=== PATIENT | female | born 1995 | race American Indian/Alaskan Native ===

== ENCOUNTER 2016-05-06 10:58 | Emergency (ER) | payer SELFPAY | END 2016-05-06 11:00 | disposition left against medical advice (07) | LOC: ED 10:58 | DX: T78.40XA Allergy, unspecified, initial encounter (principal); Z53.21 Procedure and treatment not carried out due to patient leaving prior to being seen by health care provider; X58.XXXA Exposure to other specified factors, initial encounter; Y93.89 Activity, other specified; Y99.8 Other external cause status; Y92.89 Other specified places as the place of occurrence of the external cause ==

== ENCOUNTER 2017-09-17 10:54 | Emergency (ER) | payer SELFPAY ==
[2017-09-17] MEDS ORDERED: MOTRIN PO ONE (12:59)
[2017-09-17] MEDS ORDERED: BOOSTRIX IM ONE (12:59)
[2017-09-17 13:38] LABS: Bilirubin,Urine NEG (Negative); Blood,Urine NEG (Negative); Color,Urine Yellow (Yellow); Mucus,Urine 2+ /HPF; Protein,Urine <15 mg/dL mg/dL (Negative)
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
[2017-09-17 13:46] LABS: HCG Qualitative,Urine Negative (Negative)
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
[2017-09-17 16:40] VITALS: BP 118/60
== END 2017-09-17 16:24 | disposition home or self-care (01) ==
LOC: ED 10:54
DX: S06.0X1A Concussion with loss of consciousness of 30 minutes or less, initial encounter (principal); S02.80XA Fracture of other specified skull and facial bones, unspecified side, initial encounter for closed fracture; S05.12XA Contusion of eyeball and orbital tissues, left eye, initial encounter; S05.11XA Contusion of eyeball and orbital tissues, right eye, initial encounter; Y04.0XXA Assault by unarmed brawl or fight, initial encounter; Y93.89 Activity, other specified; Y92.89 Other specified places as the place of occurrence of the external cause; Y99.8 Other external cause status
CPT/HCPCS: 70450; 70486; 72125; 81001; 81025; 90471; 90715

== ENCOUNTER 2018-08-18 17:44 | Emergency (ER) | payer SELFPAY ==
--- NOTE | 2018-08-18 18:02 | Event Note ---
ED Screening Note Date of service: 08/18/18 Time: 17:58 ED Screening Note: 23 y o female presents cc of abd pain lower, non radiating denies n/v/d also left hand and knee joint pain and intermttent swelling This initial assessment/diagnostic orders/clinical plan/treatment(s) is/are subject to change based on patients health status, clinical progression and re- assessment by fellow clinical providers in the ED. Further treatment and workup at subsequent clinical providers discretion. Patient/guardian urged not to elope from the ED as their condition may be serious if not clinically assessed and managed. Initial orders include: UA , UPT
[2018-08-18 18:58] LABS: Bilirubin,Urine NEG (Negative); Blood,Urine NEG (Negative); Color,Urine Yellow (Yellow); Mucus,Urine FEW /HPF; Protein,Urine <15 mg/dL mg/dL (Negative); Urobilinogen,Urine < 2.0 mg/dL (<2.0)
[2018-08-18 19:01] LABS: HCG Qualitative,Urine Negative (Negative)
[2018-08-18] MEDS ORDERED: TORADOL IM ONE (21:08)
[2018-08-18] MEDS ORDERED: TYLENOL PO ONE (21:08)
[2018-08-18] MEDS ORDERED: ULTRAM PO ONE (21:08)
--- NOTE | 2018-08-18 22:17 | Emergency Department Report ---
ED General Adult HPI - General Chief complaint: Abdominal Pain Stated complaint: STOMACH CRAMPS/SWOLLEN FINGER Time Seen by Provider: 08/18/18 17:58 Source: patient, RN notes reviewed, old records reviewed Mode of arrival: Ambulatory Limitations: No Limitations - History of Present Illness Initial comments: This is a 23-year-old female. This patient is not known to this provider previously. The patient is right-hand dominant. Patient presents to the ER today with a primary complaint of nontraumatic left PIP joint pain and swelling, present for the past 48 hours. The pain is throbbing, and sharp, increases with palpation and decreases with rest. She thinks the pain is radiating to the left fourth digit DIP. The patient currently denies headache, neck pain, chest pain and abdominal pain. She did endorse abdominal cramping previously. This is now resolved. She denies sore throat, rectal pain, vaginal pain, vaginal discharge. She denies skin rashes and skin lesions. She also endorses intermittent bilateral leg swelling/knee swelling, which is now resolved. She states that her primary complaint is her left fourth digit PIP pain and swelling -: days(s) Location: left, upper extremity Severity scale (0 -10): 5 Quality: other Consistency: other Improves with: other Worsens with: other Associated Symptoms: other - Related Data Previous Rx's Medication Instructions Recorded Last Taken Type Amoxicillin [Trimox CAP] 500 mg PO Q8H #21 capsule 04/01/14 Unknown Rx Promethazine Dm (Nf) [Phenergan Dm 5 ml PO Q6H PRN #120 ml 04/01/14 Unknown Rx 6.25/15 mg 5 ml] traMADol [Ultram 50 MG tab] 50 mg PO Q6HR PRN #12 tablet 04/01/14 Unknown Rx Ibuprofen [Motrin 800 MG tab] 800 mg PO Q8HR PRN #15 tablet 02/22/15 Unknown Rx metroNIDAZOLE [Flagyl] 2,000 mg PO ONCE #4 tab 02/22/15 Unknown Rx traMADol [Ultram 50 MG tab] 50 mg PO Q6HR PRN #12 tablet 02/22/15 Unknown Rx Acetaminophen/Codeine [Tylenol 1 tab PO Q6H PRN #12 tab 09/17/17 Unknown Rx /Codeine # 3 tab] Ibuprofen [Motrin] 600 mg PO Q8H PRN #30 tablet 09/17/17 Unknown Rx Sulfamethoxazole/Trimethoprim 1 each PO BID #14 tablet 09/17/17 Unknown Rx [Bactrim DS TAB] Acetaminophen [Non-Aspirin Extra 500 mg PO Q6HR PRN #30 tablet 08/18/18 Unknown Rx Strength] DOXYCYCLINE Hyclate [Vibramycin] 100 mg PO Q12HR #14 capsule 08/18/18 Unknown Rx Ibuprofen [Motrin] 600 mg PO Q8H PRN #30 tablet 08/18/18 Unknown Rx Allergies Allergy/AdvReac Type Severity Reaction Status Date / Time No Known Allergies Allergy Verified 02/22/15 21:34 ED Review of Systems ROS: Stated complaint: STOMACH CRAMPS/SWOLLEN FINGER Other details as noted in HPI Constitutional: denies: fever, malaise Eyes: denies: eye discharge ENT: denies: epistaxis Respiratory: denies: cough Cardiovascular: denies: chest pain Gastrointestinal: denies: nausea, vomiting Genitourinary: denies: urgency, dysuria, discharge Musculoskeletal: joint swelling, arthralgia, myalgia Skin: other (swelling to left fourth digit PIP). denies: lesions Neurological: weakness Psychiatric: anxiety ED Past Medical Hx - Past Medical History Previous Medical History?: No - Surgical History Past Surgical History?: No - Social History Smoking Status: Current Every Day Smoker Substance Use Type: None - Medications Home Medications: Home Medications Medication Instructions Recorded Confirmed Last Taken Type Amoxicillin [Trimox CAP] 500 mg PO Q8H #21 capsule 04/01/14 Unknown Rx Promethazine Dm (Nf) [Phenergan Dm 5 ml PO Q6H PRN #120 ml 04/01/14 Unknown Rx 6.25/15 mg 5 ml] traMADol [Ultram 50 MG tab] 50 mg PO Q6HR PRN #12 tablet 04/01/14 Unknown Rx Ibuprofen [Motrin 800 MG tab] 800 mg PO Q8HR PRN #15 tablet 02/22/15 Unknown Rx metroNIDAZOLE [Flagyl] 2,000 mg PO ONCE #4 tab 02/22/15 Unknown Rx traMADol [Ultram 50 MG tab] 50 mg PO Q6HR PRN #12 tablet 02/22/15 Unknown Rx Acetaminophen/Codeine [Tylenol 1 tab PO Q6H PRN #12 tab 09/17/17 Unknown Rx /Codeine # 3 tab] Ibuprofen [Motrin] 600 mg PO Q8H PRN #30 tablet 09/17/17 Unknown Rx Sulfamethoxazole/Trimethoprim 1 each PO BID #14 tablet 09/17/17 Unknown Rx [Bactrim DS TAB] Acetaminophen [Non-Aspirin Extra 500 mg PO Q6HR PRN #30 tablet 08/18/18 Unknown Rx Strength] DOXYCYCLINE Hyclate [Vibramycin] 100 mg PO Q12HR #14 capsule 08/18/18 Unknown Rx Ibuprofen [Motrin] 600 mg PO Q8H PRN #30 tablet 08/18/18 Unknown Rx ED Physical Exam - General Limitations: No Limitations General appearance: alert, in no apparent distress, anxious - Head Head exam: Present: atraumatic, normocephalic - Eye Eye exam: Present: normal appearance, EOMI. Absent: nystagmus - ENT ENT exam: Present: normal exam, normal orophraynx, mucous membranes moist, normal external ear exam - Neck Neck exam: Present: normal inspection, full ROM. Absent: tenderness, meningismus - Respiratory Respiratory exam: Present: normal lung sounds bilaterally. Absent: respiratory distress - Cardiovascular Cardiovascular Exam: Present: regular rate, normal rhythm, normal heart sounds. Absent: bradycardia, tachycardia, irregular rhythm, systolic murmur, diastolic murmur, rubs, gallop - GI/Abdominal GI/Abdominal exam: Present: soft. Absent: distended, tenderness, guarding, rebound, rigid, pulsatile mass - Extremities Exam Extremities exam: Present: full ROM (right upper extremity has full range of motion. Bilateral loculated supple range of motion. No skin lesions noted to the bilateral lower extremities or right upper extremity.), tenderness, other (2+ pulses noted in the bilateral upper, lower extremities. Compartments soft. No long bony tenderness. The pelvis is stable.). Absent: normal inspection (the left fourth digit PIP appears to be minimally swollen. It appears to be warm. There is no pus, streaking or crepitus. There is pain with passive range of motion of the joint.), calf tenderness - Back Exam Back exam: Present: normal inspection, full ROM. Absent: tenderness, CVA tenderness (R), CVA tenderness (L), paraspinal tenderness, vertebral tenderness - Neurological Exam Neurological exam: Present: alert, oriented X3, other (Extraocular movements intact. Tongue midline. No facial droop. Facial sensation intact to light touch in the V1, V2, V3 distribution bilaterally. 5 and 5 strength in 4 extremities.. Sensation is intact to light touch in 4 extremities.). Absent: motor sensory deficit - Psychiatric Psychiatric exam: Present: anxious - Skin Skin exam: Present: warm ED Course Vital Signs 08/18/18 08/18/18 08/18/18 17:56 22:40 22:51 Temperature 97.9 F 98.1 F 97.9 F Pulse Rate 106 H 82 68 Respiratory 16 10 L Rate Blood Pressure 122/56 Blood Pressure 119/78 117/73 [Left] O2 Sat by Pulse 99 100 Oximetry - Reevaluation(s) Reevaluation #1: 08/18/18 22:16 Differential diagnosis, including not limited to: Fracture, dislocation, arthritis, crystal-induced arthropathy, infection Assessment and plan: 23-year-old female currently with single complaint of isolated left fourth digit PIP pain and swelling. There is no obvious cellulitis, pus or streaking noted on her exam. The remainder of her physical exam is unremarkable. She has no other cutaneous skin lesions noted, there is no cardiac murmur, she does not have any other arthritis noted, and she denies oral, rectal and vaginal symptoms, therefore, think disseminated gonococcal arthritis is unlikely at this point in time. We will obtain plain films of the left hand, treat her pain, and for reassessment. Reevaluation #2: 08/18/18 22:28 X-ray of the left hand negative for acute disease. Of note, patient is obviously able to position her left affected digits in multiple positions to facilitate acquisition of the hand x-ray. Her exam is obviously not limited by pain, as evidenced by her x-ray. Think infectious etiology is unlikely. Reevaluation #3: 08/18/18 23:00 Tachycardia resolved. On reexamination, patient speaking on a cellular phone, and in no acute distress. She is requesting a 2 day work excuse. We will cover the patient empirically with doxycycline, placed in a finger splint, and have her follow-up with an orthopedist. Her examination appears to be inconsistent, as evidenced by her x-ray she was able to range her fingers without difficulty. ED Medical Decision Making - Lab Data Vital Signs 08/18/18 17:56 Temperature 97.9 F Pulse Rate 106 H Respiratory 16 Rate Blood Pressure 122/56 O2 Sat by Pulse 99 Oximetry - Radiology Data Radiology results: report reviewed, image reviewed Print Report Referring Physician: JESSICA NICHOLE Patient Name: TABATHA LARIOS Date of : 1995 Sex: Female Report Date: 2018-08-18 Report Status: Finalized Findings [facility] [address] [place] [address] XRay Report Signed Patient: TABATHA LARIOS MR#: [id number] : 1995 Acct:[id number] Age/Sex: 23 / F ADM Date: 08/18/18 Loc: ED Attending Dr: Ordering Physician: JESSICA NICHOLE MD Date of Service: 08/18/18 Procedure(s): XR hand 3+V LT Accession Number(s): [id number] cc: JESSICA NICHOLE MD Fluoro Time In Minutes: Left hand 3 views Indication: Left hand pain Findings: There is no fracture, subluxation, or other acute radiographic abnormality of the left hand. Signer Name: Jean Claude Pinon MD Signed: 08/18/2018 10:18 PM Workstation Name: [id number] Transcribed By: SS Dictated By: Jean Claude Pinon MD Electronically Authenticated By: Jean Claude Pinon MD Signed Date/Time: 08/18/18 8287 Critical care attestation.: If time is entered above; I have spent that time in minutes in the direct care of this critically ill patient, excluding procedure time. ED Disposition Clinical Impression: Finger pain, left Disposition: DC-01 TO HOME OR SELFCARE Is pt being admited?: No Does the pt Need Aspirin: No Condition: Stable Additional Instructions: Rest, avoid heavy lifting, and avoid strenuous physical activities. Take the pain medications as needed, antibiotics as directed. Follow-up with an orthopedist or hand specialist within the next 3-5 days. Return to the emergency room right away with new, worsening or different symptoms not present on the initial emergency room evaluation. Referrals: [facility] [Provider Group] - 3-5 Days GIANNA JAMES MD [Staff Physician] - 3-5 Days Forms: Work/School Release Form(ED)
--- NOTE | 2018-08-18 22:23 | XRay Report ---
Left hand 3 views Indication: Left hand pain Findings: There is no fracture, subluxation, or other acute radiographic abnormality of the left hand. Signer Name: Jean Claude Pinon MD Signed: 08/18/2018 10:18 PM Workstation Name: [id number]
[2018-08-18 23:43] VITALS: BP 120/81
== END 2018-08-18 23:45 | disposition home or self-care (01) ==
LOC: ED 17:44
DX: M79.645 Pain in left finger(s) (principal); R22.32 Localized swelling, mass and lump, left upper limb
CPT/HCPCS: 29130; 73130; 81001; 81025; 82962; 96372; 99284; J1885

== ENCOUNTER 2018-08-25 16:11 | Emergency (ER) | payer SELFPAY ==
--- NOTE | 2018-08-25 16:39 | Event Note ---
ED Screening Note ED Screening Note: l knee pain worked to hard several days in a row no fall/trauma This initial assessment/diagnostic orders/clinical plan/treatment(s) is/are subject to change based on patients health status, clinical progression and re- assessment by fellow clinical providers in the ED. Further treatment and workup at subsequent clinical providers discretion. Patient/guardian urged not to elope from the ED as their condition may be serious if not clinically assessed and managed. Initial orders include: xray
[2018-08-25 16:41] VITALS: BP 124/81
--- NOTE | 2018-08-25 17:40 | XRay Report ---
3 views of the left knee INDICATION / CLINICAL INFORMATION: knee pain. COMPARISON: None available. FINDINGS: BONES/JOINT(S): No acute fracture or subluxation. No significant degenerative changes. No joint effus ion identified. SOFT TISSUES: No significant abnormality. ADDITIONAL FINDINGS: None. Signer Name: Alonso Arroyo MD Signed: 08/25/2018 5:36 PM Workstation Name: [id number]
--- NOTE | 2018-08-25 17:43 | Emergency Department Report ---
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 THIS WAS 3 WEEKS AGO. SHE STANDS FOR ALL OF THESE HOURS. NO FALL. NO TRAUMA TO KNEE. AMBULATORY. DID NOTHING AT HOME TO DEC PAIN. -: Sudden Similar Symptoms Previously: No Place: work Quality: dull - Related Data Allergies Allergy/AdvReac Type Severity Reaction Status Date / Time No Known Allergies Allergy Verified 08/25/18 16:13 ED Review of Systems ROS: Stated complaint: L KNEE PAIN/SWOLLEN Other details as noted in HPI Comment: All other systems reviewed and negative ED Past Medical Hx - Past Medical History Medical history: no medical history Surgical history: no surgical history Family history: no significant family history ED Back Pain Physical Exam - Exam General: Vital signs noted. No distress. Alert and acting appropriately. NEUROVASC INTACT DP PLUS 2 NO SWELLING NO JOINT LINE TENDERNESS Back/Abdomen: No Abdominal Tenderness, No Perithoracic Tenderness, No Perilumbar Tenderness, No Sacroiliac Tenderness, No Flank Tenderness, No Straight Leg Raise Pain Neuro: Yes Normal Sensation, Yes Normal DTR's, Yes Normal Gait, No Motor Weakness ED Course Vital Signs 08/25/18 16:39 Temperature 98 F Pulse Rate 98 H Respiratory 16 Rate Blood Pressure 124/81 O2 Sat by Pulse 98 Oximetry Ed Back Pain Tests - Tests Tests: Normal UA ED Medical Decision Making - Radiology Data Radiology results: report reviewed, image reviewed - Medical Decision Making xray neg pt ambulatory no joint line tenderness no effusion will dc home with RICE therapy and follow up with DR Rich Vital Signs 08/25/18 16:39 Temperature 98 F Pulse Rate 98 H Respiratory 16 Rate Blood Pressure 124/81 O2 Sat by Pulse 98 Oximetry - Differential Diagnosis ro effusion Critical care attestation.: If time is entered above; I have spent that time in minutes in the direct care of this critically ill patient, excluding procedure time. ED Disposition Clinical Impression: Knee pain Disposition: DC-01 TO HOME OR SELFCARE Is pt being admited?: No Does the pt Need Aspirin: No Condition: Stable Instructions: Knee Pain (ED) Additional Instructions: xray normal REST ICE ELEVATE MOTRIN OR TYLENOL FOR PAIN IF PAIN PERSISTS FOLLOW UP WITH DR RICH[facility] Referrals: GIANNA IRCH MD [Staff Physician] - 3-5 Days Forms: Work/School Release Form(ED) Time of Disposition: 17:48
== END 2018-08-25 18:00 | disposition home or self-care (01) ==
LOC: ED 16:11
DX: M25.562 Pain in left knee (principal)

== ENCOUNTER 2020-06-16 02:11 | Emergency (ER) | payer SELFPAY ==
[2020-06-16 02:38] VITALS: BP 120/70
--- NOTE | 2020-06-16 05:00 | Emergency Department Report ---
ED Female HPI - General Chief complaint: Urogenital-Female Stated complaint: BURNING URINATION/VAGINAL ICHING/POSS STD Time Seen by Provider: 06/16/20 04:32 Source: patient Mode of arrival: Ambulatory Limitations: No Limitations - History of Present Illness Initial comments: Patient is a 25-year-old female who presents for vaginal irritation and dysuria x3 days. Patient denies fevers chills no abdominal pain or cramping. No abnormal vaginal bleeding. Patient denies possibility for STI or . States same-sex partner, last LMP 2 weeks ago MD Complaint: dysuria, other - Related Data Previous Rx's Medication Instructions Recorded Last Taken Type cephALEXin [Keflex] 500 mg PO BID 7 Days #14 cap 06/16/20 Unknown Rx metroNIDAZOLE [Flagyl] 500 mg PO BID 7 Days #14 tab 06/16/20 Unknown Rx Allergies Allergy/AdvReac Type Severity Reaction Status Date / Time No Known Allergies Allergy Verified 08/25/18 16:13 ED Review of Systems ROS: Stated complaint: BURNING URINATION/VAGINAL ICHING/POSS STD Other details as noted in HPI Constitutional: denies: chills, fever Eyes: denies: eye pain, eye discharge, vision change ENT: denies: ear pain, throat pain Respiratory: denies: cough, shortness of breath, wheezing Cardiovascular: denies: chest pain, palpitations Endocrine: no symptoms reported Gastrointestinal: denies: abdominal pain, nausea, vomiting, diarrhea Genitourinary: frequency. denies: urgency, dysuria, hematuria, discharge Musculoskeletal: denies: back pain, joint swelling, arthralgia Skin: as per HPI Neurological: denies: headache, weakness, paresthesias Psychiatric: denies: anxiety, depression Hematological/Lymphatic: denies: easy bleeding, easy bruising ED Past Medical Hx - Past Medical History Previous Medical History?: No - Surgical History Past Surgical History?: Yes Additional Surgical History: Left ovary removed - Social History Smoking Status: Current Every Day Smoker Substance Use Type: Marijuana - Medications Home Medications: Home Medications Medication Instructions Recorded Confirmed Last Taken Type cephALEXin [Keflex] 500 mg PO BID 7 Days #14 cap 06/16/20 Unknown Rx metroNIDAZOLE [Flagyl] 500 mg PO BID 7 Days #14 tab 06/16/20 Unknown Rx ED Physical Exam - General Limitations: No Limitations General appearance: alert, in no apparent distress - Head Head exam: Present: atraumatic, normocephalic - Eye Eye exam: Present: normal appearance, EOMI Pupils: Present: normal accommodation - ENT ENT exam: Present: normal exam, mucous membranes moist - Neck Neck exam: Present: normal inspection, full ROM. Absent: tenderness - Respiratory Respiratory exam: Present: normal lung sounds bilaterally. Absent: respiratory distress, wheezes - Cardiovascular Cardiovascular Exam: Present: regular rate, normal rhythm, normal heart sounds. Absent: systolic murmur, diastolic murmur, rubs, gallop - GI/Abdominal GI/Abdominal exam: Present: soft, normal bowel sounds. Absent: distended, bruit, hernia - Rectal Rectal exam: Present: deferred - External exam: Present: other (deferred by patient ) - Extremities Exam Extremities exam: Present: normal inspection, full ROM, normal capillary refill. Absent: tenderness - Back Exam Back exam: Present: normal inspection, full ROM. Absent: CVA tenderness (R), CVA tenderness (L), muscle spasm - Neurological Exam Neurological exam: Present: alert, oriented X3 - Psychiatric Psychiatric exam: Present: normal affect, normal mood - Skin Skin exam: Present: warm, dry, intact, normal color. Absent: rash ED Course Vital Signs 06/16/20 02:31 Temperature 98.5 F Pulse Rate 97 H Respiratory 16 Rate Blood Pressure 120/70 O2 Sat by Pulse 99 Oximetry ED Medical Decision Making - Lab Data Labs 06/16/20 04:57 Urine Color Yellow Urine Turbidity Clear Urine pH 5.0 Ur Specific [place] 1.012 Urine Protein 30 mg/dl Urine Glucose (UA) Neg Urine Ketones Neg Urine Blood Neg Urine Nitrite Neg Urine Bilirubin Neg Urine Urobilinogen < 2.0 Ur Leukocyte Esterase Neg Urine WBC (Auto) 1.0 Urine RBC (Auto) < 1.0 U Epithel Cells (Auto) 3.0 - Medical Decision Making UA noted normal, we will treat with dysuria, patient will follow-up with PCP in 2 to 3 days, patient verbalized agreement and understanding with discharge plan. Patient DC'd home in stable condition at this time. Critical care attestation.: If time is entered above; I have spent that time in minutes in the direct care of this critically ill patient, excluding procedure time. ED Disposition Clinical Impression: Dysuria Vaginitis Qualifiers: Chronicity: acute Qualified Code(s): N76.0 - Acute vaginitis Disposition: DC- TO HOME OR SELFCARE Is pt being admited?: No Does the pt Need Aspirin: No Condition: Stable Instructions: Dysuria, Vaginitis Additional Instructions: take all medications as prescribed , follow up with health department for HSV screening as directed, return to emergency if symptoms worsen. Prescriptions: metroNIDAZOLE [Flagyl] 500 mg PO BID 7 Days #14 tab cephALEXin [Keflex] 500 mg PO BID 7 Days #14 cap Referrals: ALICE JACKSON MD [Staff Physician] - 3-5 Days [facility] [Outside] - 3-5 Days Forms: Work/School Release Form(ED) Time of Disposition: 05:18
[2020-06-16 05:05] LABS: Bilirubin,Urine NEG (Negative); Blood,Urine NEG (Negative); Color,Urine Yellow (Yellow); RBC,Urine < 1.0 /HPF (0.0-6.0); Urobilinogen,Urine < 2.0 mg/dL (<2.0)
== END 2020-06-16 05:30 | disposition home or self-care (01) ==
LOC: ED 02:11
DX: N76.0 Acute vaginitis (principal); R30.0 Dysuria; F17.200 Nicotine dependence, unspecified, uncomplicated; F12.10 Cannabis abuse, uncomplicated; Z98.890 Other specified postprocedural states; Z79.899 Other long term (current) drug therapy
CPT/HCPCS: 81001